=== PATIENT | female | born 1990 | race Caucasian/White ===

== ENCOUNTER 2021-10-01 09:25 | Emergency (ER) | payer OTHER ==
[2021-10-01 09:49] VITALS: BP 131/81; PULSE 80; TEMP 98.3; BMI 26.9
[2021-10-01] MEDS ORDERED: KETOROLAC TROMETHAMINE 30 MG/1 ML VIAL IM ONE (10:20)
[2021-10-01] MEDS ORDERED: METHOCARBAMOL 500 MG TABLET PO ONE (10:20)
[2021-10-01] MEDS ORDERED: KETOROLAC TROMETHAMINE 30 MG/1 ML VIAL ONE (10:23)
[2021-10-01] MEDS ORDERED: METHOCARBAMOL 500 MG TABLET ONE (10:23)
== END 2021-10-01 12:56 | disposition home or self-care (01) ==
LOC: JERFT 09:25
PROC: 3E023GC Introduction of Other Therapeutic Substance into Muscle, Percutaneous Approach (ICD-10-PCS; principal; 2021-10-01)
DX: S46.912A Strain of unspecified muscle, fascia and tendon at shoulder and upper arm level, left arm, initial encounter (principal); M25.552 Pain in left hip; V03.10XA Pedestrian on foot injured in collision with car, pick-up truck or van in traffic accident, initial encounter
CPT/HCPCS: 72170-TC-FY; 73060-TC-LT-FY; 73502-TC-LT-FY; 84703; 99284-25